=== PATIENT | male | born 1985 | race Hispanic/Latino ===

== ENCOUNTER 2024-09-24 06:34 | Emergency (ER) | payer BC ==
[~2024-09-24] VITALS: Ht 162.6 cm; Wt 61.2 kg
--- NOTE | 2024-09-24 06:39 | NUR ---
SEPSIS ALERT CALLED OVERHEAD TO ROOM 14; PT WITH TEMP OF 101.0, PULSE 131
--- NOTE | 2024-09-24 06:56 | ERN ---
ED Note History of Present Illness Stated Complaint: C/O COUGH, CONGESTION, FEVER, BODYACHES Chief Complaint: Cough Time Seen by MD: 06:49 Dictation: This is a 39-year-old male came to the ER with cough congestion fever that started overnight. Sepsis alert was called based on his vital signs . He reported severe chest congestion with small amounts of mucopurulent sputum. He also reports fever and generalized body aches. No hemoptysis nausea vomitings diarrhea hematemesis or melena Temperature 101 pulse 131 respirations 20 blood pressure 139/80 with a pulse oximetry of 99% on room air Allergies: Coded Allergies: No Known Allergies (Unverified Allergy, Unknown, 09/24/24) Past Medical History Past Medical History: Unknown Surgical History: Unknown Family History: Negative Social History: Smokers, Drugs, ETOH RN Note Reviewed/Agreed w/PFSH: Yes Review of System Dictation Constitutional: Positive for fever, denies chills, and weight loss Eyes: Negative for injury, pain,redness, and discharge ENT: Negative for injury,pain or swelling Cardiovascular: Negative for chest pain, palpitations, and edema Respiratory: Positive for shortness of breath, cough, and wheezing, Abdomen/GI: Negative for abdominal pain, nausea, vomiting, diarrhea, and constipation Back: Negative for injury and pain : Negative for injury, bleeding and discharge MS/Extremity: Negative for injury and deformity Skin: Negative for rash, and discoloration Neuro: Negative for headache, weakness, numbness, tingling, and seizure Psych: Negative for suicide ideation, homicidal ideation, and hallucinations Initial Vital Sign VS Vital Signs Date Time Temp Pulse Resp B/P (MAP) Pulse Ox O2 Delivery O2 Flow Rate FiO2 09/24/24 06:39 100.9 131 20 139/80 99 Room Air 09/24/24 06:51 0 21 Physical Exam Dictation General: awake, alert, NAD Head/Face: Normocephalic, atraumatic Eyes: PERRL, EOMI, vision at baseline ENT: oral cavity clear, TMs clear, no signs of infection Neck: Trachea midline, supple, no nuchal rigidity Cardiovascular: RRR, normal S1/S2, No MRGs, no JVD Respiratory: CTAB, no respiratory distress, No rales or wheezes Abdomen: Soft, non-tender, non-distended, normal bowel sounds, no guarding or rebound. Skin: Warm, dry, normal turgor, no rash MS/Extremity: Pulses equal, no cyanosis, neurovascular intact, FROM Neuro: COAx4, GCS 15, strength 5/5, CN 2-12 intact, normal cerebellar exam, normal gait, Psych: Normal behavior, mood, and affect normal Extremities-trace edema without any palpable cords, Homans sign is negative Results (Laboratory/Radiology) Laboratory/Radiology Laboratory Tests Test 09/24/24 06:40 09/24/24 06:46 09/24/24 08:34 White Blood Count 8.4 K/uL (4.8-10.8) Red Blood Count 4.65 MIL/uL (4.50-6.20) Hemoglobin 14.8 g/dL (14.0-18.0) Hematocrit 41.6 % (42-54) L Mean Corpuscular Volume 89.5 fL (79-99) Mean Corpuscular Hemoglobin 31.8 pg (27.0-33.0) Mean Corpuscular Hemoglobin Concent 35.6 g/dL (32.0-36.0) Red Cell Distribution Width 13.1 % (11.0-15.5) Platelet Count 247 K/uL (130-400) Mean Platelet Volume 9.2 fL (7.5-10.5) Immature Granulocyte % (Auto) 1.2 % (0-1) H Neutrophils (%) (Auto) 82.0 % (40.0-77.0) H Lymphocytes (%) (Auto) 6.6 % (21.0-51.0) L Monocytes (%) (Auto) 8.0 % (3.0-13.0) Eosinophils (%) (Auto) 1.7 % (0.0-8.0) Basophils (%) (Auto) 0.5 % (0.0-5.0) Neutrophils # (Auto) 6.9 K/uL (1.8-7.7) Lymphocytes # (Auto) 0.6 K/uL (1.0-4.8) L Monocytes # (Auto) 0.7 K/uL (0.1-1.0) Eosinophils # (Auto) 0.14 K/uL (0.00-0.70) Basophils # (Auto) 0.04 K/uL (0.00-0.20) Absolute Immature Granulocyte (auto 0.10 K/uL (0-1) Nucleated Red Blood Cells 0.0 % (0.0-0.19) White Cell Morphology Comment See comments Sodium Level 138 mmol/L (136-145) Potassium Level 3.5 mmol/L (3.5-5.1) Chloride Level 102 mmol/L (101-111) Carbon Dioxide Level 23 mmol/L (21-32) Blood Urea Nitrogen 7 mg/dL (7-18) Creatinine 0.9 mg/dL (0.5-1.3) Glomerular Filtration Rate Calc 111 mL/min (>90) Random Glucose 100 mg/dL (70-105) Lactic Acid Level 2.1 mmol/L (0.8-2.5) 0.8 mmol/L (0.8-2.5) Total Calcium 8.9 mg/dL (8.5-10.1) Total Creatine Kinase 82 U/L (21-232) Troponin I High Sensitivity 19 ng/L (4-75) Influenza Type A Antigen Positive For Type A Influenza Type B Antigen Negative For Type B SARS-CoV-2, RNA, NAAT NEGATIVE SARS CoV-2 Group A Streptococcus Rapid positive (NEGATIVE) *A Labs Reviewed?: Yes ED Course ED Course Orders Procedure Category Date Status Time Iv Insertion CPOE 09/24/24 Transmitted 06:37 Pulse Ox(Continuous) RT 09/24/24 Transmitted 06:37 Vital Signs Per CPOE 09/24/24 Transmitted Routine 06:37 12 Lead Ekg Tracing- EKG 09/24/24 Complete Technical 06:37 Cbc With Differential LAB 09/24/24 Complete 06:37 Blood Cult FIDELIA 09/24/24 In Process 06:37 Urinalysis Profile LAB 09/24/24 Logged 06:37 Culture Urine FIDELIA 09/24/24 Logged 06:37 Creatine Kinase, Total LAB 09/24/24 Complete 06:37 Troponin I High LAB 09/24/24 Complete Sensitivity 06:37 Lactic Acid LAB 09/24/24 Complete 06:37 Basic Metabolic Panel LAB 09/24/24 Complete 06:37 Covid Rna Naat LAB 09/24/24 Complete 06:42 Influenza Type A & B, LAB 09/24/24 Complete Rapid 06:42 Rapid (Group A Strep) LAB 09/24/24 Complete 06:46 Acetaminophen 500mg PHA 09/24/24 Complete Tab (Tylenol 500mg T 07:00 0.9%Nacl 1000ml (Ns PHA 09/24/24 In Process 1000ml) 07:00 Acetaminophen 500mg PHA 09/24/24 Complete Tab (Tylenol 500mg T 07:00 Drug Screen Urine LAB 09/24/24 Logged 06:50 Chest 1vw RAD 09/24/24 Taken 06:57 Ketorolac PHA 09/24/24 Complete Tromethamine 15mg/Ml 07:30 Lactic Acid LAB 09/24/24 Complete 08:36 Dexamethasone 4mg/Ml PHA 09/24/24 Transmitted 1ml Vial (Dexametha 09:30 Current Medications Medications (Trade) Dose Ordered Sig/Ria Route PRN Reason Start Time Stop Time Status Last Admin Dose Admin Acetaminophen (TYLenol 500MG TAB) 1,000 mg ONCE ONCE PO 09/24/24 07:00 09/24/24 07:01 DC 09/24/24 07:00 Acetaminophen (TYLenol 500MG TAB) 1,000 mg ONCE ONCE PO 09/24/24 07:00 09/24/24 07:04 DC Ketorolac Tromethamine (toRADol) 15 mg ONCE ONCE IV 09/24/24 07:30 09/24/24 07:31 DC 09/24/24 07:17 Sodium Chloride 1,836 ml @ 612 mls/hr ONCE ONCE IV 09/24/24 07:00 09/24/24 09:59 09/24/24 07:00 Vital Signs Date Time Temp Pulse Resp B/P (MAP) Pulse Ox O2 Delivery O2 Flow Rate FiO2 09/24/24 09:03 98.1 93 20 113/75 99 Room Air* 0 21 09/24/24 07:00 101.5 09/24/24 06:51 101.5 126 20 126/83 100 Room Air* 0 21 09/24/24 06:39 100.9 131 20 139/80 99 Room Air We will perform diagnostic labs, advanced imaging and administer medications according to the patient's complaint. Once the results are available, will review and personally interpreted the labs to rule out any acute life- threatening emergency the trach require immediate intervention and treatment. I will then re-evaluate the patient after treatment and diagnostic exams have return to determine whether the patient requires any further testing, can safely be discharged home or need further admission to hospital for additional treatment and evaluation. Sepsis pathway initiated normal saline at 30 mL/kilos Medical Decision Making MDM MDM: Differential diagnosis: Strep, influenza, COVID, sepsis, Patient is a 39-year-old gentleman coming in to be evaluated for URI symptoms. During triage evaluation patient was tachycardic and febrile sepsis alert was called due to the presentation. Throughout ER patient has been stable received IV fluids states he feels 100 times better. Patient was diagnosed with strep and influenza. Patient will be discharged with oral antibiotics as well as Tamiflu. Symptomatic medication will be provided as well. Problem List Problem List: (1) Sepsis DX & DISP Disposition: Discharge Departure Impression: Primary Impression: Influenza A Additional Impression: Strep pharyngitis Condition: Stable Scripts Prednisone (Prednisone) 5 Mg Tablet 1 TAB PO DAILY for 7 Days, #7 TAB 0 Refills Prov: ROB PADILLA MD 09/24/24 Oseltamivir Phosphate (Tamiflu) 75 Mg Cap 1 CAP PO BID for 5 Days, #10 CAP 0 Refills Prov: ROB PADILLA MD 09/24/24 Albuterol Sulfate (Ventolin Hfa) 90 Mcg Hfa.aer.ad 2 PUFF IH Q4HPRN PRN for wheezing for 30 Days, #18 GM 0 Refills Prov: ROB PADILLA MD 09/24/24 Amoxicillin (Amoxicillin) 500 Mg Capsule 1 CAP PO TID for 10 Days, #30 CAP 0 Refills Prov: ROB PADILLA MD 09/24/24 Additional Instructions: FOLLOW-UP WITH PRIMARY CARE PROVIDER IN 1 TO 2 DAYS. TAKE MEDICATIONS DIRECTED HERE IN THE EMERGENCY ROOM. OKAY TO CONTINUE HOME MEDICATIONS UNLESS OTHERWISE DISCUSSED DURING YOUR VISIT IN THE EMERGENCY ROOM TODAY. RETURN TO YOUR NEAREST EMERGENCY ROOM IF SYMPTOMS WORSEN OR IF THERE IS NO IMPROVEMENT. CALL 911 IF YOU NEED IMMEDIATE ASSISTANCE. TAKE TYLENOL [id number] NEEDED AND IF NO CONTRAINDICATIONS ARE PRESENT. INCREASE ORAL HYDRATION. A WOUND CULTURE OR URINE CULTURE WAS ORDERED HERE IN THE EMERGENCY ROOM DEPARTMENT PLEASE FOLLOW-UP WITH PRIMARY CARE PROVIDER AND ADVISE THEM TO GET REPEAT PORTS FROM OUR FACILITY. IF YOU HAD ANY CARMEN WRAP/SPLINTS THAT WERE APPLIED HERE, PLEASE DO NOT REMOVE THEM UNTIL YOU SEE YOUR PRIMARY CARE OR SPECIALTY. Referrals: Referrals: SELF,REFERRAL (PCP) BRADY YIN MD Time of Disposition: 09:16 [facility],ROBERT Vilchis MD Sep 24, 2024 06:56 ROB PADILLA MD Sep 24, 2024 09:18
--- NOTE | 2024-09-24 06:58 | EKG ---
[facility] Test Date: 2024-09-24 Test Time: 06:40:47 Pat Name: MARINA SPIVEY Department: [facility] Room: Gender: M Manager Motor: 1081 : 1985 Requested By: ROBERT BABB Order Number: [id number] Reading MD: Siomara Pride Measurements Intervals [place] Rate: 112 P: 71 MS: 135 QRS: 82 QRSD: 99 T: 72 QT: 321 QTc: 440 Interpretive Statements Sinus tachycardia ST elev, probable normal early repol pattern No previous ECG available for comparison Electronically Signed On 09-24-2024 09:51:07 PANTOGRAPHER by Siomara Pride Please click the below link to view image of tracing.
[2024-09-24] MEDS: acetaMINOPHEN 500 MG TABLET PO ONE ×2 (07:00)
[2024-09-24] MEDS: 0.9%NACL 1000ML 1,836 ML IV ONE (07:00)
[2024-09-24 07:08] LABS: BASOPHILS # (AUTO) 0.04 K/uL (0.00-0.20); BASOPHILS % (AUTO) 0.5 % (0.0-5.0); EOSINOPHILS # (AUTO) 0.14 K/uL (0.00-0.70); EOSINOPHILS % (AUTO) 1.7 % (0.0-8.0); HEMATOCRIT 41.6 % (42-54); LYMPHOCYTES # (AUTO) 0.6 K/uL (1.0-4.8); LYMPHOCYTES % (AUTO) 6.6 % (21.0-51.0); MEAN CORPUSCULAR HEMOGLOBIN 31.8 pg (27.0-33.0); MEAN CORPUSCULAR HGB CONC 35.6 g/dL (32.0-36.0); MEAN CORPUSCULAR VOLUME 89.5 fL (79-99); MONOCYTES # (AUTO) 0.7 K/uL (0.1-1.0); NEUTROPHILS # (AUTO) 6.9 K/uL (1.8-7.7); PLATELET COUNT (AUTO) 247 K/uL (130-400); RED BLOOD CELL COUNT(AUTO) 4.65 MIL/uL (4.50-6.20); RED CELL DISTRIBUTION WIDTH 13.1 % (11.0-15.5); WHITE BLOOD COUNT (AUTO) 8.4 K/uL (4.8-10.8)
[2024-09-24] MEDS: ketOROlac 15MG/ML VIAL (15MG/ML) IV ONE (07:17)
[2024-09-24 07:21] LABS: CREATININE 0.9 mg/dL (0.5-1.3); POTASSIUM 3.5 mmol/L (3.5-5.1)
[2024-09-24 07:27] LABS: SARS-CoV-2, RNA, NAAT NEGATIVE SARS CoV-2 (NEGATIVE)
[2024-09-24 07:32] LABS: INFLUENZA TYPE B Negative For Type B (NEGATIVE)
[2024-09-24 07:35] LABS: INFLUENZA TYPE A Positive For Type A (NEGATIVE)
[2024-09-24 08:08] VITALS: TEMP 98
[2024-09-24] MEDS ORDERED: OSEL75 PO (09:18)
[2024-09-24] MEDS ORDERED: AMOX500C2 PO (09:18)
[2024-09-24] MEDS ORDERED: ALBU18HF7 IH (09:18)
[2024-09-24] MEDS ORDERED: PRED5TAB PO (09:18)
[2024-09-24 09:24] LABS: APPEARANCE,URINE CLEAR (CLEAR); BILIRUBIN,URINE NEGATIVE (NEGATIVE); GLUCOSE, URINE (UA) NEGATIVE (NEGATIVE); KETONES,URINE NEGATIVE (NEGATIVE); LEUKOCYTE ESTERASE ,URINE NEGATIVE Leu/uL (NEGATIVE); NITRATE,URINE NEGATIVE (NEGATIVE); OCCULT BLOOD,URINE NEGATIVE (NEGATIVE); PH,URINE 6.5 (5.0-8.0); PROTEIN,URINE NEGATIVE (NEGATIVE); UROBILINOGEN,URINE 0.2 mg/dL (0.2-1.0)
[2024-09-24] MEDS: dexaMETHasone SOD PHOSPHATE 4 MG/ML 1ML VIAL IVP ONE (09:25)
[2024-09-24 09:27] LABS: ADD UA MICROSCOPIC NO; COLOR,URINE STRAW (YELLOW)
[2024-09-24 09:29] LABS: AMPHET/METH SCREEN,URINE NEGATIVE (NEGATIVE); BARBITURATE SCREEN, URINE NEGATIVE (NEGATIVE); BENZODIAZEPINES SCREEN,URINE NEGATIVE (NEGATIVE); CANNABINOID SCREEN,URINE POSITIVE (NEGATIVE); COCAINE SCREEN,URINE POSITIVE (NEGATIVE); OPIATE SCREEN,URINE NEGATIVE (NEGATIVE); PHENCYCLIDINE SCREEN,URINE NEGATIVE (NEGATIVE)
[2024-09-24 09:32] VITALS: BP 119/58; PULSE 89; RESP 22; TEMP 98.1; O2SAT 99
--- NOTE | 2024-09-24 12:19 | HMCIMG ---
Exam Type: CHEST 1VW Clinical Information: sepsis, cough congestion Comparison: None Findings: The lungs are clear of infiltrates. The heart is normal in size. The bony and soft tissue structures of the chest are unremarkable. Impression: Clear lungs.
== END 2024-09-24 09:39 | disposition home or self-care (01) ==
LOC: EDH 06:34
DX: J10.1 Influenza due to other identified influenza virus with other respiratory manifestations (principal); J02.0 Streptococcal pharyngitis; F17.200 Nicotine dependence, unspecified, uncomplicated; Z20.822 Contact with and (suspected) exposure to COVID-19
CPT/HCPCS: 99284; 96374; 71045; 87635; 96361; 96375; 82550; 84484; 80048; 80305; 85025; 87040 ×2; 87086; 87880; 87804 ×2; 83605 ×2; 36415; 93005; 81003; J1100; J1885; J7030